=== PATIENT | male | born 1970 | race Caucasian/White ===

== ENCOUNTER → 2017-02-23 | Outpatient (CLI) | payer BC, OTHER ==
[~2017-02-23] MED LIST: ADVIL100 M2 PO; CEFTIN500 MG PO; FENOFIBRATE160 MG PO; LORTAB 5 MG/5001 TA1 PO; MEDROLDOSEPACK PO; POTASSIUM20 PO
== END ==
LOC: ULTRA 14:58
DX: N50.3 Cyst of epididymis (principal); I86.1 Scrotal varices